=== PATIENT | male | born 2000 | race Caucasian/White ===

== ENCOUNTER 2023-12-14 15:29 | Outpatient (AMB) | payer OTHER, SELFPAY ==
--- NOTE | 2023-12-14 15:32 | MHC.PC.OV ---
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 He is transferring from [facility]. He reports a significant past medical history of seasonal allergies. He states that his labs were last checked within the last 6 months and were normal. He has no acute concerns today other than his allergies. He wants to try something different than Zyrtec. He is tried Terri before it is ineffective. Claritin is ineffective. He does have Flonase at home and states that he will sometimes use it. 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 1. Little interest or pleasure in doing things: not at all 2. Feeling down, depressed, or hopeless: not at all 3. Trouble falling or staying asleep, or sleeping too much: not at all 4. Feeling tired or having little energy: not at all 5. Poor appetite or overeating: not at all 6. Feeling bad about yourself - or that you are a failure or have let yourself or your family down: not at all 7. Trouble concentrating on things, such as reading the newspaper or watching television: not at all 8. Moving or speaking so slowly that other people could have noticed. Or the opposite - being so fidgety or restless that you have been moving around a lot more than usual: not at all 9. Thoughts that you would be better off or of hurting yourself in some way: not at all Total score: 0 Depression Screening Interpretation: Negative Depression Screening Done: Yes [id number] - PHQ-9 Billing: Yes Source: Developed by Drs. Fitz Mendosa, Mara Cummins, Raheem Lafleur and colleagues, with an educational dai from [employer]. Thrive Questionnaire Date Thrive assessed: 12/14/23 I am a: Patient What is your living situation today?: I have a steady place to live Within the past 12 months, did the food you bought not last and you didn't have the money to get more?: Never true Within the past 12 months, did you worry whether your food would run out before you got money to buy more?: Never true Do you have trouble paying for medicines?: No Do you have trouble getting transportation to medical appointments?: No Do you have trouble paying your heating and electricity bill?: No Do you have trouble taking care of your child, family member or friend?: No Do you have trouble with day-to-day activities such as bathing, preparing meals, shopping, managing finances, etc.?: No Are you currently unemployed and looking for a job?: No Are you interested in more education?: No Please select the resources that you would like help with: None Currently or been in a relationship where the following occur: no concerns reported THRIVE Score: 0 AUDIT C Alcohol Use Questionnaire (AUDIT-C) 1. How often do you have a drink containing alcohol?: Never 3. How often do you have six or more drinks on one occasion?: Never Total Score: 0 SHILPI-7 AMB Questionnaire SHILPI-7 Date SHILPI - 7 assessed: 12/14/23 Feeling nervous, anxious, or on edge: 0 = Not at all Not being able to stop or control worryin = Not at all Worrying too much about different things: 0 = Not at all Trouble relaxin = Not at all Being so restless that it is hard to sit still: 0 = Not at all Becoming easily annoyed or irritable: 0 = Not at all Feeling afraid as if something awful might happen: 0 = Not at all Total SHILPI-7 score (0-4 normal; 5-9 mild; 10-14 moderate; 15-21 severe): 0 Source: Developed by Drs. Fitz Mendosa, Mara Cummins, aRheem Lafleur and colleagues, with an educational dai from [employer]. SHILPI-7 Assessment Billing SHILPI-7 Assessment Tool: SHILPI-7 Assessment 41998 Physical exam (Primary Care) Vital Signs: Last Vital Signs Temp 98.1 F 12/14/23 16:07 Pulse 73 12/14/23 16:07 BP 118/72 12/14/23 16:07 Pulse Ox 96 12/14/23 16:07 Oxygen Delivery Method Room Air 12/14/23 16:07 BMI result Body Mass Index 34.0 Tobacco/Smoking Status: Tobacco use Status Tobacco use date assessed 12/14/23 12/14/23 15:33 Patient Tobacco Use Status Never used Tobacco 12/14/23 15:33 e-Cigarette/Vaping Use Never Used 12/14/23 15:33 PHQ-9: PHQ-9 Score PHQ-9: Total score 15 12/14/23 16:16 Depression Screening Interpretation: Negative Thrive Assessment: Date of Thrive Assessment Date Thrive assessed 12/14/23 12/14/23 16:15 Currently or been in a relationship where the following occur: no concerns reported Const Orientation/consciousness: patient oriented x3 HENMT Ears: hearing grossly normal bilaterally and TM's normal bilaterally General nose exam: Normal nasal mucous membranes and turbinates present Face and sinus: Yes sinuses nontender Mouth: Normal oral and palatal mucosa present Neck Thyroid: Thyroid normal Lymphatic: no lymphadenopathy noted Resp Auscultation: clear to auscultation bilaterally Cardio Rate: regular rate Rhythm: regular rhythm Heart sounds: S1 normal heart sound present and S2 normal heart sound present GI Inspection: Yes normal to inspection Palpation (GI): Soft to palpation and Other GI palpation findings present (nontender, no cva tenderness) Auscultation: normoactive bowel sounds Rectal Exam - Male: Yes deferred Skin General skin exam: no rashes or lesions noted Neuro General: patient oriented x3, gait normal and no focal motor deficits Assessment and Plan Assessment & Plan (1) Seasonal allergies: Code(s): J30.2 - Other seasonal allergic rhinitis Plan: We will try Xyzal and Flonase. Advised patient to follow up if no improvement. Advised to follow up for a physical exam. Sooner if needed. Patient understands and agrees with the plan. Medications: New levocetirizine (Xyzal) 5 mg PO QPM 90 tabs 0RF Coding Level of Care Code Est Pt Level 3 (34609) Diagnoses Seasonal allergies J30.2 Additional Codes SHILPI-7 Assessment Billing - SHILPI-7 Assessment Tool: SHILPI-7 Assessment 40343 ([id number])
[2023-12-14 16:07] VITALS: BP 118/72; PULSE 73; TEMP 36.7; O2SAT 96; BMI 34.0
== END 2023-12-14 16:27 | disposition home or self-care (01) ==
LOC: HO.HMGFM 15:53
PROVIDERS: Visit Provider Physician Assistant
DX: J30.2 Other seasonal allergic rhinitis (principal)
CPT/HCPCS: 99213

== ENCOUNTER 2024-01-01 18:22 | Emergency (ER) | payer OTHER, SELFPAY ==
--- NOTE | ~2024-01-01 | XR_ITS ---
EXAMINATION: XR FOOT, LEFT CLINICAL INFORMATION: Pain status-post injury, worse at great toe. COMPARISON: None available. TECHNIQUE: AP, lateral, and oblique views of the left foot. FINDINGS: The bones and soft tissues are normal. No fracture. Alignment is anatomic. Joint spaces are maintained. XR/XR foot LT 2V IMPRESSION: Normal left foot.
[2024-01-01 18:40] VITALS: BP 119/75; PULSE 94; RESP 16; TEMP 36.7; O2SAT 99; BMI 33.7
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
[2024-01-02 00:08] VITALS: BP 122/74; PULSE 63; RESP 18; TEMP 36.6; O2SAT 99
[2024-01-02 00:13] VITALS: BP 122/74; PULSE 63; RESP 18; TEMP 36.6; O2SAT 98
== END 2024-01-02 00:14 | disposition home or self-care (01) ==
PROVIDERS: Emergency Provider Internal Medicine; PCP Physician Assistant
DX: S90.32XA Contusion of left foot, initial encounter (principal); W23.0XXA Caught, crushed, jammed, or pinched between moving objects, initial encounter; Y93.9 Activity, unspecified; Y92.9 Unspecified place or not applicable; Y99.9 Unspecified external cause status
CPT/HCPCS: 73620; 99283; 99284